=== PATIENT | male | born 1935 | race Caucasian/White ===

== ENCOUNTER 2016-10-06 01:09 | Inpatient (IN) | payer MEDICARE, MEDICAID ==
[~2016-10-06] VITALS: Ht 177.8 cm; Wt 84.8 kg
[~2016-10-06 01:09] MED LIST: ALBU8.5H8 INH; FERR325T22 PO; FLUT1DIS28 INH; Furosemide PO; LEVO500T2 PO; METH4TAB21 PO; PANT40TA2 PO; TIOT18CA4 IH
[2016-10-06] MEDS ORDERED: FURO-152 PO (01:34)
[2016-10-06] MEDS ORDERED: ONDANSETRON 4 MG/2 ML VIAL IV ONE (03:15)
[2016-10-06] MEDS ORDERED: MORPHINE SULFATE 2 MG/1 ML DISP.SYRIN IV ONE (03:15)
[2016-10-06] MEDS ORDERED: MORPHINE SULFATE 4 MG/1 ML DISP.SYRIN ONE (03:33)
[2016-10-06] MEDS ORDERED: ONDANSETRON 4 MG/2 ML VIAL ONE (03:33)
[2016-10-06 03:42] LABS: BASOPHILS % (AUTO) 0.1 % (0.0-2.0); EOSINOPHILS # (AUTO) 0.1 K/uL (0.0-0.7); EOSINOPHILS % (AUTO) 0.6 % (0.0-7.0); HEMATOCRIT 28.2 % (40-50); HEMOGLOBIN 8.7 G/DL (14.0-18.0); LYMPHOCYTES # (AUTO) 0.5 K/UL (0.8-4.8); LYMPHOCYTES % (AUTO) 3.9 % (20.5-51.5); MEAN CORPUSCULAR HEMOGLOBIN 23.2 UUG (27.0-31.0); MEAN CORPUSCULAR HGB CONC 31 g/dL (32.0-37.0); MEAN CORPUSCULAR VOLUME 75.4 FL (82.0-92.0); MONOCYTES # (AUTO) 0.8 K/UL (0.1-1.30); MONOCYTES % (AUTO) 6.2 % (0.0-11.0); NEUTROPHILS # (AUTO) 11.2 K/UL (1.8-8.9); NEUTROPHILS % (AUTO) 89.2 % (38.5-71.5); PLATELET COUNT (AUTO) 229 K/UL (150-450); RED BLOOD CELL COUNT(AUTO) 3.74 MIL/UL (4.7-6.1); WHITE BLOOD COUNT (AUTO) 12.6 K/UL (4.0-11.2)
[2016-10-06 04:11] LABS: ALANINE AMINOTRANSFERASE 12 U/L (16-63); ALKALINE PHOSPHATASE 85 U/L (50-136); ASPARTATE AMINOTRANSFERASE 16 U/L (15-37); BILIRUBIN,DIRECT 0.2 mg/dL (0.0-0.2); BILIRUBIN,TOTAL 0.8 mg/dL (0.2-1.0); CARBON DIOXIDE 28 mmol/L (21-32); CHLORIDE 93 mmol/L (98-107); GLUCOSE 106 mg/dL (74-106); POTASSIUM 5.2 mmol/L (3.5-5.1); TOTAL PROTEIN, SERUM 8.1 g/dL (6.4-8.2); UREA NITROGEN, BLOOD 29 mg/dL (7-18)
[2016-10-06 04:11] LABS: *BILIRUBIN,URIN NEGATIVE (NEGATIVE); *BLOOD, URINE 3+ (NEGATIVE); *CLARITY,URINE CLEAR (CLEAR); *COLOR,URINE YELLOW (YELLOW); *KETONES,URINE NEGATIVE (NEGATIVE); *PROTEIN,URINE NEGATIVE (NEGATIVE); *UROBILINOGEN,URINE 0.2 E.U./dl (NORMAL); LEUKOCYTE ESTERASE ,URINE NEGATIVE (NEGATIVE); NITRITE, URINE NEGATIVE (NEGATIVE); PH,URINE 5.5 (5.0-8.0); UGLUCOSE NEGATIVE (NEGATIVE)
[2016-10-06 04:30] LABS: BACTERIA,URINE NONE SEEN /HPF (NONE SEEN); RBC,URINE 20-50 /HPF (0-3); SQUAMOUS EPITHELIAL CELL,UR NONE SEEN /HPF (NONE SEEN); WBC,URINE 0-3 /HPF (0-3)
--- NOTE | 2016-10-06 05:05 | NUR ---
Call placed to [facility], Dr. Dunn will be paged.
[2016-10-06] MEDS ORDERED: VANCOMYCIN IV 1,000 MG in IV DEXTROSE 5% 250 ML IV ONE (05:30)
[2016-10-06] MEDS ORDERED: PIPERACILLIN SODIUM/TAZOBACTAM 3.375 G in IV DEXTROSE 5% 50 ML IV ONE (05:30)
[2016-10-06] MEDS ORDERED: PIPERACILLIN/TAZOBACTAM/D5W 50 ML IV ONE (05:48)
[2016-10-06] MEDS ORDERED: VANCOMYCIN IV 200 ML ONE (05:48)
[2016-10-06] MEDS ORDERED: ONDANSETRON 4 MG/2 ML VIAL IV PRN (06:00)
[2016-10-06] MEDS ORDERED: ALBUTEROL SULFATE 2.5 MG/3 ML NEBU NEB PRN (06:00)
[2016-10-06] MEDS ORDERED: ACETAMINOPHEN 325 MG TABLET PO PRN (06:00)
[2016-10-06] MEDS ORDERED: MAGNESIUM HYDROXIDE 30 ML LIQUID UDC PO PRN (06:00)
[2016-10-06 06:49] VITALS: BP 90/52
--- NOTE | 2016-10-06 08:00 | NUR ---
PT confused and forgetfull. Pt alert and oriented x [address] Noted ESPINOZA lower extremity redness with scaly skin. Bruising noted on right lower leg. Upper extremities bruising noted. Head scab noted. Redness on buttocks noted. Pictures taken. Pt is in no acute distress. Call light is within reach.
[2016-10-06 08:07] VITALS: BP 110/58
[2016-10-06] MEDS: IV NS 1000 ML 1,000 ML IV PRN (08:58)
[2016-10-06] MEDS: methylPREDNISolone SOD SUCC 125 MG/2 ML VIAL IV SCH ×3 (09:46→17:25)
[2016-10-06] MEDS: PANTOPRAZOLE SODIUM 40 MG TABLET.DR PO SCH (09:46)
[2016-10-06 10:46] LABS: *BILIRUBIN,URIN NEGATIVE (NEGATIVE); *BLOOD, URINE 3+ (NEGATIVE); *CLARITY,URINE SLIGHTLY CLOUDY (CLEAR); *COLOR,URINE LIGHT YELLOW (YELLOW); *KETONES,URINE NEGATIVE (NEGATIVE); *PROTEIN,URINE 2+ (NEGATIVE); *UROBILINOGEN,URINE 0.2 E.U./dl (NORMAL); LEUKOCYTE ESTERASE ,URINE NEGATIVE (NEGATIVE); NITRITE, URINE NEGATIVE (NEGATIVE); PH,URINE 5.5 (5.0-8.0); UGLUCOSE NEGATIVE (NEGATIVE)
[2016-10-06 10:56] LABS: *CREATININE,URINE 89.2 mg/dL (30-125); *URINE TOTAL PROTEIN RANDOM 50.1 mg/dL (<150/24HR); BACTERIA,URINE FEW /HPF (NONE SEEN); RBC,URINE 20-50 /HPF (0-3); SQUAMOUS EPITHELIAL CELL,UR FEW /HPF (NONE SEEN)
[2016-10-06 10:57] LABS: URIC ACID CRYSTALS,URINE MANY /HPF (NONE SEEN)
[2016-10-06] MEDS: HYDROCODONE/APAP 5-325MG TABLET PO PRN (11:49)
[2016-10-06] MEDS ORDERED: VANCOMYCIN IV 750 MG in IV DEXTROSE 5% 250 ML IV SCH (12:45)
--- NOTE | 2016-10-06 13:30 | NUR ---
Clinical Pharmacy Note: Vancomycin Dosing per Pharmacy Subjective: Vancomycin IV to start on this 81 yo male patient for cellulitis. patient had vanco 1gm IVPB x1 in ED at 0600 today Objective: BUN 29/Scr 2 WBC 12.9 Temperature 97.9 ht 5' 10'' wt 84 kg Assessment/Plan: Due to elevated srcr & advanced age, will dose by fall off level. Will draw a vancomycin random level tomorrow am with labs for further dosing. Will follow daily.
[2016-10-06] MEDS: AMMONIUM LACTATE 12% LOTION 225 GM BOTTLE TP SCH ×2 (13:53→16:14)
[2016-10-06] MEDS ORDERED: PIPERACILLIN/TAZOBACTAM/D5W 3.375 G in PREMIXED 1 EACH IV SCH (14:00)
[2016-10-06 14:08] VITALS: BP 113/51
[2016-10-06] MEDS: PIPERACILLIN/TAZOBACTAM/D5W 2.25 G in PREMIXED 1 EACH IV SCH ×2 (15:30→21:41)
[2016-10-06 16:14] VITALS: BP 101/45
--- NOTE | 2016-10-06 18:30 | NUR ---
Pt is in no acute distress. Call light is within reach.
--- NOTE | 2016-10-06 19:15 | NUR ---
PATIENT ALERT AWAKE, NO SOB NO CHEST PAIN NOTED, NO COMPLAIN OF PAIN AT THIS TIME, BILATERAL LEG CELLULITIS PRESENT KEPT ELEVATED WITH PILLOW. CONT TO MONITOR.
--- NOTE | 2016-10-06 20:30 | NUR ---
TRIED TO PUT ON THE AIR MATTRESS, BUT PATIENT REFUSED, STATED, I'M SHERLEY LIKE THIS POSITION, I DONT WANT TO MOVED. EXPLAINED THE RISK AND BENEFIT, BUT REFUSED.
--- NOTE | 2016-10-06 20:35 | NUR ---
OFFERED TO PATIENT TO APPLY DVT PUMP, BUT REFUSED, SAID "I HAVE WOUND THERE, I DONT WANT IT" EXPLAINED THAT DRESSING WILL BE APPLIED TO THE WOUND, BUT REFUSED.
[2016-10-06 20:43] VITALS: BP 97/51
[2016-10-07] VITALS (15 sets, daily range): BP systolic 105–167; BP diastolic 39–81
[2016-10-07] MEDS: methylPREDNISolone SOD SUCC 125 MG/2 ML VIAL IV SCH ×5 (00:16→23:36)
[2016-10-07] MEDS: PIPERACILLIN/TAZOBACTAM/D5W 2.25 G in PREMIXED 1 EACH IV SCH ×4 (01:46→20:03)
[2016-10-07] MEDS: PANTOPRAZOLE SODIUM 40 MG TABLET.DR PO SCH (06:17)
[2016-10-07] MEDS: IV NS 1000 ML 1,000 ML IV PRN (06:17)
--- NOTE | 2016-10-07 07:04 | NUR ---
PATIENT ALERT BUT FORGETFULL, NO SOB NO CHEST PAIN, KEPT CLEAN AND DRY. NO S/S OF DISTRESS.
[2016-10-07 07:08] LABS: IRON, SERUM 20 ug/dL (50-175)
[2016-10-07 07:21] LABS: VANCOMYCIN,RANDOM 6.3 ug/mL (18.0-26.0)
[2016-10-07 07:22] LABS: BASOPHILS % (AUTO) 0.1 % (0.0-2.0); HEMATOCRIT 25.5 % (40-50); LYMPHOCYTES # (AUTO) 0.2 K/UL (0.8-4.8); LYMPHOCYTES % (AUTO) 5.2 % (20.5-51.5); MEAN CORPUSCULAR HEMOGLOBIN 23.4 UUG (27.0-31.0); MEAN CORPUSCULAR HGB CONC 31 g/dL (32.0-37.0); MEAN CORPUSCULAR VOLUME 76.4 FL (82.0-92.0); MONOCYTES # (AUTO) 0.1 K/UL (0.1-1.30); MONOCYTES % (AUTO) 1.8 % (0.0-11.0); NEUTROPHILS # (AUTO) 3.8 K/UL (1.8-8.9); NEUTROPHILS % (AUTO) 91.9 % (38.5-71.5)
[2016-10-07 07:30] LABS: RED BLOOD CELL COUNT(AUTO) 3.33 MIL/UL (4.7-6.1); WHITE BLOOD COUNT (AUTO) 4.1 K/UL (4.0-11.2)
[2016-10-07] MEDS ORDERED: CEFTRIAXONE 1 G in IV DEXTROSE 5% 50 ML IV SCH (07:30)
[2016-10-07 07:31] LABS: PLATELET COUNT (AUTO) 162 K/UL (150-450)
[2016-10-07 07:32] LABS: HEMOGLOBIN 7.8 G/DL (14.0-18.0)
[2016-10-07 07:41] LABS: CREATINE KINASE, TOTAL 115 U/L (39-308)
--- NOTE | 2016-10-07 08:00 | NUR ---
Pt is in no acute distress. pt has low hg level awaiting for further orders. Call light is within reach. Applied lotion on legs. Pt's legs still has less scaly skin but still swollen and reddened.
[2016-10-07] MEDS: AMMONIUM LACTATE 12% LOTION 225 GM BOTTLE TP SCH ×2 (08:18→16:34)
[2016-10-07 08:20] LABS: ALANINE AMINOTRANSFERASE 14 U/L (16-63); ALKALINE PHOSPHATASE 60 U/L (50-136); ASPARTATE AMINOTRANSFERASE 16 U/L (15-37); BILIRUBIN,TOTAL 0.6 mg/dL (0.2-1.0); CARBON DIOXIDE 27 mmol/L (21-32); CHLORIDE 97 mmol/L (98-107); CREATININE 1.9 mg/dL (0.6-1.3); FERRITIN 31 ng/mL (26-388); GLUCOSE 142 mg/dL (74-106); MAGNESIUM 2.4 mg/dL (1.8-2.4); PHOSPHOROUS 4.2 mg/dL (2.5-4.9); POTASSIUM 4.5 mmol/L (3.5-5.1); UREA NITROGEN, BLOOD 28 mg/dL (7-18)
[2016-10-07] MEDS ORDERED: VANCOMYCIN IV 1,250 MG in IV DEXTROSE 5% 500 ML IV ONE (09:30)
[2016-10-07] MEDS ORDERED: VANCOMYCIN IV 1 G in PREMIXED 0 EACH IV ONE (10:00)
[2016-10-07] MEDS: CYANOCOBALAMIN 1000 MCG/ML VIAL IM SCH (11:59)
[2016-10-07] MEDS ORDERED: MAGNESIUM HYDROXIDE 30 ML LIQUID UDC PO ONE (16:00)
--- NOTE | 2016-10-07 17:02 | NUR ---
Clinical Pharmacy Note: Vancomycin Dosing per Pharmacy Subjective: Vancomycin IV to continue on this 81 yo male patient for cellulitis. Objective: BUN 28/Scr 1.9 WBC 4.1 Temperature 98 Vanco random level : 6.3 (with am labs- post 1gm dose in Ed on 10/06 at 0600) ht 5' 10'' wt 84 kg Assessment/Plan: Due to elevated srcr & advanced age, will continue to dose by fall off level. Since vancomycin random level is 6.3, gave vancomycin 1250mg IVPB x1 dose this am at 10am. Will draw a vancomycin random level tomorrow am with labs for further dosing. Will follow daily.
--- NOTE | 2016-10-07 18:30 | NUR ---
Awaiting results from prune juice and MOM given earlier for his constipation still no result. Blood transfusion done no reaction noted and no sob noted. IV site on left arm intact. Call light is within reach.
--- NOTE | 2016-10-07 23:15 | NUR ---
PT'S BP ELEVATED 157/71, HR 99. PT IS IN NO ACUTE DISTRESS, NO SOB. DR. FRANKLIN AWARE, NO NEW ORDERS AT THIS TIME. PER DR. FRANKLIN, CONTINUE TO MONITOR AND WILL EVALUATE TOGETHER WITH LABS IN THE MORNING.
--- NOTE | 2016-10-07 23:30 | NUR ---
PT'S BP 167/66, HR 94, ALERT, IN NO ACUTE DISTRESS, NO SOB, NO C/O OF CHEST PAIN. PAGED DR. FRANKLIN FOR PARAMETERS. WILL CONTINUE TO MONITOR.
[2016-10-07] MEDS: HYDROCODONE/APAP 5-325MG TABLET PO PRN (23:35)
--- NOTE | 2016-10-08 | NUR ---
NO RESPONSE FROM DR. FRANKLIN. PT'S BP DOWN TO 155/81. PT IS ALERT, IN NO ACUTE DISTRESS. WILL CONTINUE TO MONITOR
[2016-10-08 00:45] VITALS: BP 148/78
[2016-10-08 01:45] VITALS: BP 139/74
--- NOTE | 2016-10-08 02:08 | NUR ---
1 UNIT PRBC ADMINISTERED ORDERED. PT TOLERATED PROCEDURE WELL, NO ADVERSE REACTION NOTED, IN NO ACUTE DISTRESS, NO SOB, NO C/O OF CHEST PAIN. WILL CONTINUE TO MONITOR.
[2016-10-08] MEDS: PIPERACILLIN/TAZOBACTAM/D5W 2.25 G in PREMIXED 1 EACH IV SCH ×4 (02:36→21:10)
--- NOTE | 2016-10-08 06:00 | NUR ---
PT AWAKE MOST OF THE SHIFT, C/O OF BEING "POKED" AT MULTIPLE TIMES. PT IS IN NO ACUTE DISTRESS, NO SOB, NO C/O OF CHEST PAIN. BED ALARM ON, CALL LIGHT WITHIN REACH. WILL CONTINUE TO MONITOR.
[2016-10-08] MEDS: methylPREDNISolone SOD SUCC 125 MG/2 ML VIAL IV SCH (06:04)
[2016-10-08] MEDS: PANTOPRAZOLE SODIUM 40 MG TABLET.DR PO SCH (06:04)
[2016-10-08 06:55] LABS: BASOPHILS % (AUTO) 0.1 % (0.0-2.0); EOSINOPHILS # (AUTO) 0.1 K/uL (0.0-0.7); LYMPHOCYTES # (AUTO) 0.3 K/UL (0.8-4.8); LYMPHOCYTES % (AUTO) 3.2 % (20.5-51.5); MEAN CORPUSCULAR HEMOGLOBIN 25.6 UUG (27.0-31.0); MEAN CORPUSCULAR HGB CONC 32 g/dL (32.0-37.0); MEAN CORPUSCULAR VOLUME 80.1 FL (82.0-92.0); MONOCYTES # (AUTO) 0.5 K/UL (0.1-1.30); MONOCYTES % (AUTO) 5.1 % (0.0-11.0); NEUTROPHILS # (AUTO) 9.1 K/UL (1.8-8.9); NEUTROPHILS % (AUTO) 90.6 % (38.5-71.5); PLATELET COUNT (AUTO) 151 K/UL (150-450)
--- NOTE | 2016-10-08 07:00 | NUR ---
PT INSISTED TO GO TO BATHROOM WITH 2 PERSON ASSIST. EXPERIENCED SOB ON EXERTION. PLACED PATIENT BACK TO CHAIR. ASSESSED O2 AT 96% 2L NC. INSTRUCTED PATIENT TO DEEP BREATHE AND RELAX. PATIENT VERBALIZED UNDERSTANDING. CALL LIGHT WITHIN REACH. WILL CONTINUE TO MONITOR.
[2016-10-08 07:03] LABS: HEMATOCRIT 33.6 % (40-50); HEMOGLOBIN 10.8 G/DL (14.0-18.0)
[2016-10-08 07:09] LABS: CARBON DIOXIDE 30 mmol/L (21-32); CHLORIDE 100 mmol/L (98-107); CREATININE 1.9 mg/dL (0.6-1.3); GLUCOSE 136 mg/dL (74-106); MAGNESIUM 2.9 mg/dL (1.8-2.4); POTASSIUM 4.9 mmol/L (3.5-5.1); UREA NITROGEN, BLOOD 36 mg/dL (7-18)
[2016-10-08 08:32] LABS: ALKALINE PHOSPHATASE 57 U/L (50-136); ASPARTATE AMINOTRANSFERASE 21 U/L (15-37); PHOSPHOROUS 3.6 mg/dL (2.5-4.9); TOTAL PROTEIN, SERUM 7.4 g/dL (6.4-8.2)
[2016-10-08 09:11] LABS: ALANINE AMINOTRANSFERASE 16 U/L (16-63); BILIRUBIN,TOTAL 1.5 mg/dL (0.2-1.0)
[2016-10-08] MEDS: CYANOCOBALAMIN 1000 MCG/ML VIAL IM SCH (09:26)
[2016-10-08] MEDS: Z GUARD REMEDY PASTE 57 GM TUBE TOP PRN (09:26)
[2016-10-08] MEDS: AMMONIUM LACTATE 12% LOTION 225 GM BOTTLE TP SCH ×2 (09:27→17:00)
[2016-10-08 11:12] LABS: VANCOMYCIN,RANDOM 14.4 ug/mL (18.0-26.0)
[2016-10-08 11:59] VITALS: BP 131/61
[2016-10-08] MEDS ORDERED: VANCOMYCIN IV 1,250 MG in IV DEXTROSE 5% 500 ML IV ONE (12:00)
[2016-10-08 12:10] LABS: A/G RATIO 0.9 (0.7-1.7); ALBUMIN 2.9 g/dL (2.9-4.4); ALPHA-1-GLOBULIN 0.3 g/dL (0.0-0.4); ALPHA-2-GLOBULIN 0.7 g/dL (0.4-1.0); BETA GLOBULIN 0.9 g/dL (0.7-1.3); GAMMA GLOBULIN 1.4 g/dL (0.4-1.8); GLOBULIN, TOTAL 3.3 g/dL (2.2-3.9); M-SPIKE Not Observed g/dL (Not Observed)
--- NOTE | 2016-10-08 12:59 | NUR ---
WOUND CARE CONSULT: PT PRESENTS WITH REDNESS TO LOWER LEGS WITH CRUSTING AND SOME PURULENT DRAINAGE. RECOMMENDATIONS MADE AND DISCUSSED WITH NURSING STAFF. RECOMMEND DPM CONSULT. PT REFUSED SKIN ASSESSMENT OF BACK AND BUTTOCKS. ALL SKIN PROTECTION MEASURES IN PLACE. WILL SEE PRN. MCGUIRE IN AGREEMENT WITH PLAN OF CARE. Addendum: 10/08/16 at 1303 by XOCHITL TREJO RN Amended: Links added.
[2016-10-08] MEDS: SILVER SULFADIAZINE 1% CREAM 50 GM TP SCH (13:00)
[2016-10-08] MEDS ORDERED: methylPREDNISolone SOD SUCC 125 MG/2 ML VIAL IV SCH (14:00)
[2016-10-08] MEDS: methylPREDNISolone SOD SUCC 40 MG/ML VIAL IV SCH ×2 (14:05→21:10)
[2016-10-08 15:18] VITALS: BP 137/68
--- NOTE | 2016-10-08 15:50 | NUR ---
Clinical Pharmacy Note: Vancomycin Dosing per Pharmacy Subjective: Vancomycin IV to continue on this 81 yo male patient for cellulitis. Objective: BUN 36/Scr 1.9 WBC 10.0 Temperature 98 Vanco random level : 14.4 (with am labs) ht 5' 10'' wt 84 kg Assessment/Plan: Due to elevated srcr & advanced age, will continue to dose by fall off level. Gave one dose 1250mg vancomycin today at 1200 based on random today. Will draw a vancomycin random level tomorrow am with labs for further dosing. Will follow daily.
[2016-10-08 20:00] VITALS: BP 151/77
[2016-10-08] MEDS: LACTOBACILLUS RHAMNOSUS GG 1 EACH CAPSULE PO SCH (21:10)
[2016-10-09] MEDS: PIPERACILLIN/TAZOBACTAM/D5W 2.25 G in PREMIXED 1 EACH IV SCH ×4 (02:09→19:46)
[2016-10-09 04:56] VITALS: BP 139/61
--- NOTE | 2016-10-09 05:15 | NUR ---
PT SLEPT ON THE CHAIR THROUGHOUT SHIFT, REFUSED TO LAY IN BED. PT STATED HE HAS BEEN SLEEPING ON THE CHAIR AT HOME FOR A LONG TIME. PT STATED "I DON'T KNOW WHY I GET NERVOUS WHEN I'M IN BED". PATIENT REFUSED TO HAVE LOWER EXTREMITIES ELEVATED. PT IS IN NO ACUTE DISTRESS, NO SOB, NO C/O OF CHEST PAIN. CALL LIGHT WITHIN REACH, WILL CONTINUE TO MONITOR.
[2016-10-09] MEDS: PANTOPRAZOLE SODIUM 40 MG TABLET.DR PO SCH (06:01)
[2016-10-09] MEDS: methylPREDNISolone SOD SUCC 40 MG/ML VIAL IV SCH ×3 (06:01→21:09)
[2016-10-09 07:14] LABS: BASOPHILS % (AUTO) 0.1 % (0.0-2.0); EOSINOPHILS # (AUTO) 0.1 K/uL (0.0-0.7); EOSINOPHILS % (AUTO) 0.9 % (0.0-7.0); HEMATOCRIT 34.7 % (40-50); HEMOGLOBIN 11.1 G/DL (14.0-18.0); LYMPHOCYTES # (AUTO) 0.3 K/UL (0.8-4.8); LYMPHOCYTES % (AUTO) 4.5 % (20.5-51.5); MEAN CORPUSCULAR HEMOGLOBIN 25.8 UUG (27.0-31.0); MEAN CORPUSCULAR HGB CONC 32 g/dL (32.0-37.0); MEAN CORPUSCULAR VOLUME 80.5 FL (82.0-92.0); MONOCYTES # (AUTO) 0.5 K/UL (0.1-1.30); MONOCYTES % (AUTO) 6.2 % (0.0-11.0); NEUTROPHILS # (AUTO) 6.7 K/UL (1.8-8.9); NEUTROPHILS % (AUTO) 88.3 % (38.5-71.5); PLATELET COUNT (AUTO) 147 K/UL (150-450); RED BLOOD CELL COUNT(AUTO) 4.31 MIL/UL (4.7-6.1); WHITE BLOOD COUNT (AUTO) 7.6 K/UL (4.0-11.2)
[2016-10-09 07:36] LABS: ALANINE AMINOTRANSFERASE 20 U/L (16-63); ALKALINE PHOSPHATASE 54 U/L (50-136); ASPARTATE AMINOTRANSFERASE 16 U/L (15-37); BILIRUBIN,TOTAL 0.7 mg/dL (0.2-1.0); CARBON DIOXIDE 31 mmol/L (21-32); CHLORIDE 100 mmol/L (98-107); CREATININE 1.6 mg/dL (0.6-1.3); GLUCOSE 131 mg/dL (74-106); PHOSPHOROUS 3.2 mg/dL (2.5-4.9); POTASSIUM 4.7 mmol/L (3.5-5.1); TOTAL PROTEIN, SERUM 7.5 g/dL (6.4-8.2); UREA NITROGEN, BLOOD 34 mg/dL (7-18)
--- NOTE | 2016-10-09 08:00 | NUR ---
AWAKE COOPERATE WELL NO SOB OR RESPIRATORY DISTRESS NO PAIN EAT BREAKFAST MOD AMT CONTINUEO2 AT 2L /MIN SITTING IN CHAIR WITH CALL CHILDS IN REACH
[2016-10-09 08:06] LABS: MAGNESIUM 2.7 mg/dL (1.8-2.4); VANCOMYCIN,RANDOM 19.8 ug/mL (18.0-26.0)
[2016-10-09] MEDS: SILVER SULFADIAZINE 1% CREAM 50 GM TP SCH (08:52)
[2016-10-09] MEDS: Z GUARD REMEDY PASTE 57 GM TUBE TOP PRN (08:53)
[2016-10-09] MEDS: AMMONIUM LACTATE 12% LOTION 225 GM BOTTLE TP SCH ×2 (08:53→17:23)
[2016-10-09] MEDS: CYANOCOBALAMIN 1000 MCG/ML VIAL IM SCH (08:53)
[2016-10-09] MEDS: LACTOBACILLUS RHAMNOSUS GG 1 EACH CAPSULE PO SCH ×2 (09:11→21:09)
[2016-10-09 11:53] VITALS: BP 149/85
[2016-10-09] MEDS ORDERED: VANCOMYCIN IV 1,250 MG in IV DEXTROSE 5% 500 ML IV ONE (12:00)
--- NOTE | 2016-10-09 14:00 | NUR ---
REPORT OF BLOOD CULTURE WAS POSITIVE MRSA TO DR RIDLEY.NOEMI NO NEW ORDER PATIENT ALREADY ON VANCOMYCIN AND ZOSYN AND ON CONTACT ISOLATION
--- NOTE | 2016-10-09 15:30 | NUR ---
IV INFILTRATE LEAKING REFUSED TO RESTART A NEW ONE WILL TRY LATER
[2016-10-09 15:35] VITALS: BP 153/81
--- NOTE | 2016-10-09 15:45 | NUR ---
Clinical Pharmacy Note: Vancomycin Dosing per Pharmacy Subjective: Vancomycin IV to continue on this 81 yo male patient for cellulitis. Objective: BUN 34/Scr 1.6 WBC 7.6 Temperature 98.2 Vanco random level : 19.8 today at 0600 ht 5' 10'' wt 84 kg Blood culture:MRSA positive Assessment/Plan: Due to elevated srcr & advanced age, will continue to dose by fall off level. Gave one dose 1250mg vancomycin today at 1200 based on random today. Will draw a vancomycin random level tomorrow am with labs for further dosing. Will follow daily.
--- NOTE | 2016-10-09 18:00 | NUR ---
STABLE CONDITION NO RESPIRATORY DISTRESS OR SOB PAIN UNDER CONTROL SAFETY MEASURE PROVIDED CALL CHILDS IN REACH AND BED ALARM ON
[2016-10-09 20:00] VITALS: BP 147/83
[2016-10-10] MEDS: PIPERACILLIN/TAZOBACTAM/D5W 2.25 G in PREMIXED 1 EACH IV SCH ×2 (01:39→08:23)
--- NOTE | 2016-10-10 04:00 | NUR ---
PT STATED WAKING UP WITH THE IV SITE BLEEDING/ IV PULLED OUT ON LEFT HAND. ALSO NOTED NEW SKIN TEAR ON SAME HAND. TX DONE. APPLIED STERI STRIP. PICTURE TAKEN. PLACED ON CHART.
[2016-10-10 05:00] VITALS: BP 122/63
[2016-10-10] MEDS ORDERED: methylPREDNISolone SOD SUCC 40 MG/ML VIAL ONE (06:05)
[2016-10-10] MEDS: PANTOPRAZOLE SODIUM 40 MG TABLET.DR PO SCH (06:09)
[2016-10-10] MEDS: methylPREDNISolone SOD SUCC 40 MG/ML VIAL IV SCH ×2 (06:09→14:26)
--- NOTE | 2016-10-10 07:00 | NUR ---
NEW IV SITE REINSERT ON LEFT HAND #22 X 1 ATTEMPT USING ASEPTIC TECHNIQUE. PATENT AND INTACT. PROCEDURE TOLERATED WELL. CONTINUE ON CONTACT ISOLATION FOR MRSA BLOOD. SAFETY MAINTAINED THROUGHOUT SHIFT.
--- NOTE | 2016-10-10 07:10 | NUR ---
PT AWAKE, SITTING IN CHAIR, IN NO ACUTE DISTRESS. AGITATED, YELLING AT PEOPLE ON TV. IV INTACT AND PATENT. ABLE TO MAKE NEEDS KNOWN, NONE AT THIS TIME. CALL LIGHT IN REACH, CONTACT PRECAUTIONS MAINTAINED. ALL SAFETY AND COMFORT MEASURES ATTENDED TOO
[2016-10-10] MEDS: CYANOCOBALAMIN 1000 MCG/ML VIAL IM SCH (08:23)
[2016-10-10] MEDS: LACTOBACILLUS RHAMNOSUS GG 1 EACH CAPSULE PO SCH (08:23)
[2016-10-10] MEDS: AMMONIUM LACTATE 12% LOTION 225 GM BOTTLE TP SCH (08:25)
[2016-10-10] MEDS: SILVER SULFADIAZINE 1% CREAM 50 GM TP SCH (08:25)
[2016-10-10 10:30] LABS: BASOPHILS % (AUTO) 0.1 % (0.0-2.0); EOSINOPHILS # (AUTO) 0.1 K/uL (0.0-0.7); EOSINOPHILS % (AUTO) 0.7 % (0.0-7.0); HEMATOCRIT 34.5 % (40-50); HEMOGLOBIN 10.9 G/DL (14.0-18.0); LYMPHOCYTES # (AUTO) 0.4 K/UL (0.8-4.8); LYMPHOCYTES % (AUTO) 3.6 % (20.5-51.5); MEAN CORPUSCULAR HEMOGLOBIN 25.5 UUG (27.0-31.0); MEAN CORPUSCULAR HGB CONC 32 g/dL (32.0-37.0); MEAN CORPUSCULAR VOLUME 80.8 FL (82.0-92.0); MONOCYTES # (AUTO) 0.8 K/UL (0.1-1.30); MONOCYTES % (AUTO) 8.1 % (0.0-11.0); NEUTROPHILS # (AUTO) 8.9 K/UL (1.8-8.9); NEUTROPHILS % (AUTO) 87.5 % (38.5-71.5); PLATELET COUNT (AUTO) 137 K/UL (150-450); RED BLOOD CELL COUNT(AUTO) 4.27 MIL/UL (4.7-6.1)
[2016-10-10 10:38] LABS: WHITE BLOOD COUNT (AUTO) 10.2 K/UL (4.0-11.2)
[2016-10-10 10:42] LABS: ALANINE AMINOTRANSFERASE 15 U/L (16-63); ALKALINE PHOSPHATASE 48 U/L (50-136); ASPARTATE AMINOTRANSFERASE 19 U/L (15-37); BILIRUBIN,TOTAL 0.7 mg/dL (0.2-1.0); CARBON DIOXIDE 30 mmol/L (21-32); CHLORIDE 99 mmol/L (98-107); CREATININE 1.4 mg/dL (0.6-1.3); GLUCOSE 148 mg/dL (74-106); MAGNESIUM 2.6 mg/dL (1.8-2.4); PHOSPHOROUS 2.7 mg/dL (2.5-4.9); POTASSIUM 4.6 mmol/L (3.5-5.1); TOTAL PROTEIN, SERUM 6.9 g/dL (6.4-8.2); UREA NITROGEN, BLOOD 34 mg/dL (7-18); VANCOMYCIN,RANDOM 17.2 ug/mL (18.0-26.0)
[2016-10-10 11:33] VITALS: BP 121/58
[2016-10-10] MEDS ORDERED: VANCOMYCIN IV 1,250 MG in IV DEXTROSE 5% 500 ML IV ONE (12:00)
[2016-10-10] MEDS ORDERED: PIPERACILLIN/TAZOBACTAM/D5W 3.375 G in PREMIXED 1 EACH IV SCH (14:00)
--- NOTE | 2016-10-10 14:31 | NUR ---
The patient will be discharged today to [facility] per Dr. Calles and the request of his main caregiver, Cristobal Velazquez [ ]. Cristobal stated that the patient had been refusing to ambulate at home and she is getting too weak to lift him around. She would like for him to be a little stronger before going back to her home. She promised the patient that she will not put him in a SNF and she is requesting for home health to follow-up once ready to go back home. JONY Muse from [facility], confirmed that they will admit the patient today. His RN, Layla, is aware of his discharge plan and will call the unit for the report.
--- NOTE | 2016-10-10 14:49 | NUR ---
Clinical Pharmacy Note: Vancomycin Dosing per Pharmacy Subjective: Vancomycin IV to continue on this 81 yo male patient for cellulitis. Objective: BUN 34/Scr 1.4 WBC 10.2 Temperature 97.6 Vanco random level : 17.2 today at 0600 ht 5' 10'' wt 84 kg Blood culture:MRSA positive Assessment/Plan: Due to elevated srcr & advanced age, will continue to dose by fall off level. Gave one dose of 1250mg today at 1200. Will draw a vancomycin random level tomorrow am with labs for further dosing. Will follow daily.
[2016-10-10 15:15] VITALS: BP_SYST 121; BP_SYST 123; BP_DIAS 58; BP_DIAS 60
[2016-10-10] MEDS ORDERED: MENT71OI TOP (15:21)
[2016-10-10] MEDS ORDERED: ZINC220C8 PO (15:21)
[2016-10-10] MEDS ORDERED: ALBU2.5V7 NEB (15:21)
[2016-10-10] MEDS ORDERED: LACT1CAP57 PO (15:21)
[2016-10-10] MEDS ORDERED: Silver Sulfadiazine 1% Cream TP (15:21)
[2016-10-10] MEDS ORDERED: CYAN10006 IM (15:21)
[2016-10-10] MEDS ORDERED: RXVAN XX (15:21)
[2016-10-10] MEDS ORDERED: PRED20TA PO (15:21)
[2016-10-10] MEDS ORDERED: PANT40TA2 PO ×2 (15:21→15:25)
[2016-10-10] MEDS ORDERED: MULT1TAB73 PO (15:21)
[2016-10-10] MEDS ORDERED: ACET325T53 PO (15:21)
[2016-10-10] MEDS ORDERED: ASCO500C16 PO (15:21)
[2016-10-10] MEDS ORDERED: AMMO225L7 TP (15:21)
[2016-10-10] MEDS ORDERED: MAG30ORA PO (15:21)
[2016-10-10] MEDS ORDERED: FURO-152 PO (15:21)
[2016-10-10] MEDS ORDERED: FERR325T28 PO (15:21)
[2016-10-10] MEDS ORDERED: HYDR-3326 PO (15:21)
--- NOTE | 2016-10-10 17:00 | NUR ---
DISCHARGE PROTOCOL FOLLOWED, DISCHARGE PICTURES TAKEN HOWEVER UPON LAST TWO PICTURES, OF THE SACRUM AND THE LEFT ARM, PT BECAME VERY AGITATED AND REFUSED AND FURTHER PICTURES. PT AGITATED DUE TO THE FACT BEING TRANSFERRED TO ARU AND NOT HOME. STATED "I AM NOT STAYING ANY MORE THAN 2 DAYS, I GOT HELP AT HOME" ALL BELONGINGS ACCOUNTED FOR AND RETURNED TO PT, TRIED TO GET A HOLD OF PT DAUGHTER HOWEVER LINE WAS BUSY. PT ID BAND REMOVED AND ALL FORMS SIGNED. PT TAKEN DOWN TO ARU IN A WHEELCHAIR WITH IV AND DC INTACT. REPORT GIVEN TO ARU NURSE
== END 2016-10-10 17:00 | DRG 871 ==
LOC: ER 01:11 → TELE 06:07 → MED 19:32
PROVIDERS: ADMIT Internal Medicine; ATTEND Internal Medicine
PROC: 30233N1 Transfusion of Nonautologous Red Blood Cells into Peripheral Vein, Percutaneous Approach (ICD-10-PCS; principal; 2016-10-07)
DX: A41.9 Sepsis, unspecified organism (principal); N17.0 Acute kidney failure with tubular necrosis; E43 Unspecified severe protein-calorie malnutrition; I50.33 Acute on chronic diastolic (congestive) heart failure; R53.2 Functional quadriplegia; D68.59 Other primary thrombophilia; L03.116 Cellulitis of left lower limb; L03.115 Cellulitis of right lower limb; J44.1 Chronic obstructive pulmonary disease with (acute) exacerbation; E87.1 Hypo-osmolality and hyponatremia; E87.2 Acidosis; K92.2 Gastrointestinal hemorrhage, unspecified; R65.20 Severe sepsis without septic shock; N40.1 Benign prostatic hyperplasia with lower urinary tract symptoms; R33.8 Other retention of urine; D50.9 Iron deficiency anemia, unspecified; Z87.891 Personal history of nicotine dependence; Z68.26 Body mass index [BMI] 26.0-26.9, adult; Z74.09 Other reduced mobility; B95.5 Unspecified streptococcus as the cause of diseases classified elsewhere; Z79.899 Other long term (current) drug therapy; J61 Pneumoconiosis due to asbestos and other mineral fibers; E66.9 Obesity, unspecified; E53.8 Deficiency of other specified B group vitamins; D50.0 Iron deficiency anemia secondary to blood loss (chronic); I70.0 Atherosclerosis of aorta; N18.9 Chronic kidney disease, unspecified; K21.9 Gastro-esophageal reflux disease without esophagitis; I87.2 Venous insufficiency (chronic) (peripheral)
CPT/HCPCS: 36415; 51702; 70030-TC; 71010; 76770; 83550; 83605; 83735; 83970; 84100; 84155; 84156; 84165; 84300; 85025; 85730; 86850; 86900; 86901; 86920; 87040; 87070; 87077; 87086; 93005; 93307; 94640; 97116; 97161; 97530; A4663; J0696; J2270; J2405; J2543; J2920; J2930; J3370; J3420; J7030; J7040; J7050; J7060; P9016-BL; P9021

== ENCOUNTER 2016-10-10 14:50 | Inpatient (IN) | payer MEDICARE, MEDICAID ==
[~2016-10-10] VITALS: Ht 180.3 cm; Wt 84.8 kg
[~2016-10-10 14:50] MED LIST changes: -ALBU8.5H8 INH; -FERR325T22 PO; -FLUT1DIS28 INH; +FURO-152 PO; -Furosemide PO; -LEVO500T2 PO; -METH4TAB21 PO; -PANT40TA2 PO; -TIOT18CA4 IH
[2016-10-10] MEDS ORDERED: MENT71OI TOP (15:21)
[2016-10-10] MEDS ORDERED: FERR325T28 PO (15:21)
[2016-10-10] MEDS ORDERED: ACET325T53 PO (15:21)
[2016-10-10] MEDS ORDERED: PRED20TA PO (15:21)
[2016-10-10] MEDS ORDERED: FURO-152 PO (15:21)
[2016-10-10] MEDS ORDERED: HYDR-3326 PO (15:21)
[2016-10-10] MEDS ORDERED: AMMO225L7 TP (15:21)
[2016-10-10] MEDS ORDERED: LACT1CAP57 PO (15:21)
[2016-10-10] MEDS ORDERED: RXVAN XX (15:21)
[2016-10-10] MEDS ORDERED: MAG30ORA PO (15:21)
[2016-10-10] MEDS ORDERED: CYAN10006 IM (15:21)
[2016-10-10] MEDS ORDERED: ZINC220C8 PO (15:21)
[2016-10-10] MEDS ORDERED: ALBU2.5V7 NEB (15:21)
[2016-10-10] MEDS ORDERED: Silver Sulfadiazine 1% Cream TP (15:21)
[2016-10-10] MEDS ORDERED: ASCO500C16 PO (15:21)
[2016-10-10] MEDS ORDERED: MULT1TAB73 PO (15:21)
[2016-10-10] MEDS ORDERED: PANT40TA2 PO ×2 (15:21→15:25)
[2016-10-10 21:00] VITALS: BP 138/68
[2016-10-10] MEDS ORDERED: ALBUTEROL SULFATE 2.5 MG/3 ML NEBU NEB PRN (22:30)
[2016-10-10] MEDS ORDERED: MAG HYDROX/AL HYDROX/SIMETH 30 ML LIQUID UDC PO PRN (22:30)
[2016-10-10] MEDS ORDERED: TAMSULOSIN HCL 0.4 MG CAP.SR.24H PO ONE (22:30)
[2016-10-10] MEDS ORDERED: Z GUARD REMEDY PASTE 57 GM TUBE TOP PRN (22:30)
[2016-10-10] MEDS ORDERED: ACETAMINOPHEN 325 MG TABLET PO PRN (22:30)
[2016-10-10] MEDS ORDERED: TAMSULOSIN HCL 0.4 MG CAP.SR.24H ONE (23:11)
[2016-10-11 08:13] LABS: BASOPHILS % (AUTO) 0.1 % (0.0-2.0); EOSINOPHILS % (AUTO) 0.5 % (0.0-7.0); HEMATOCRIT 33.4 % (40-50); HEMOGLOBIN 10.3 G/DL (14.0-18.0); LYMPHOCYTES # (AUTO) 0.9 K/UL (0.8-4.8); LYMPHOCYTES % (AUTO) 11.3 % (20.5-51.5); MEAN CORPUSCULAR HEMOGLOBIN 24.7 UUG (27.0-31.0); MEAN CORPUSCULAR HGB CONC 31 g/dL (32.0-37.0); MEAN CORPUSCULAR VOLUME 80.3 FL (82.0-92.0); MONOCYTES # (AUTO) 0.5 K/UL (0.1-1.30); MONOCYTES % (AUTO) 6.9 % (0.0-11.0); NEUTROPHILS # (AUTO) 6.2 K/UL (1.8-8.9); NEUTROPHILS % (AUTO) 81.2 % (38.5-71.5); RED BLOOD CELL COUNT(AUTO) 4.16 MIL/UL (4.7-6.1)
[2016-10-11 08:15] LABS: PLATELET COUNT (AUTO) 101 K/UL (150-450); WHITE BLOOD COUNT (AUTO) 7.6 K/UL (4.0-11.2)
[2016-10-11 08:20] LABS: CARBON DIOXIDE 30 mmol/L (21-32); CHLORIDE 98 mmol/L (98-107); CHOLESTEROL 133 mg/dL (<200); CREATININE 1.5 mg/dL (0.6-1.3); GLUCOSE 157 mg/dL (74-106); HDL CHOLESTEROL 49 mg/dL (40-60); MAGNESIUM 2.5 mg/dL (1.8-2.4); POTASSIUM 3.7 mmol/L (3.5-5.1); TRIGLYCERIDES 105 MG/DL (30-150); UREA NITROGEN, BLOOD 33 mg/dL (7-18)
[2016-10-11] MEDS: PANTOPRAZOLE SODIUM 40 MG TABLET.DR PO SCH ×2 (11:27→17:16)
[2016-10-11] MEDS: FUROSEMIDE 20 MG TABLET PO SCH (11:27)
[2016-10-11] MEDS: MULTIVITAMINS,THERAPEUTIC TABLET PO SCH (11:27)
[2016-10-11] MEDS: LACTOBACILLUS RHAMNOSUS GG 1 EACH CAPSULE PO SCH ×2 (11:27→21:41)
[2016-10-11] MEDS: ZINC SULFATE 220 MG CAPSULE PO SCH (11:27)
[2016-10-11] MEDS: predniSONE 20 MG TABLET PO SCH ×2 (11:28→17:16)
[2016-10-11] MEDS: ASCORBIC ACID 500 MG TABLET PO SCH (11:28)
[2016-10-11] MEDS: AMMONIUM LACTATE 12% LOTION 225 GM BOTTLE TP SCH ×2 (11:28→17:16)
[2016-10-11] MEDS: FERROUS SULFATE 325 MG TABEC PO SCH (11:28)
[2016-10-11] MEDS: CYANOCOBALAMIN 1000 MCG/ML VIAL IM SCH (11:29)
--- NOTE | 2016-10-11 11:57 | NUR ---
Clinical Pharmacy Note: Vancomycin Dosing per Pharmacy Subjective: Vancomycin IV to continue on this 81 yo male patient for cellulitis. Objective: BUN 33/Scr 1.5 WBC 7.6 Temperature 98 Vanco random level :19.9 today at 07:40 ht 5' 10'' wt 84 kg Blood culture:MRSA positive Assessment/Plan: Due to elevated srcr & advanced age, will continue to dose by fall off level. Gave one dose of 1250mg today at 1200. Will draw a vancomycin random level tomorrow am with labs for further dosing. Will follow daily.
[2016-10-11] MEDS ORDERED: VANCOMYCIN IV 1,250 MG in IV DEXTROSE 5% 500 ML IV SCH (12:00)
[2016-10-11] MEDS ORDERED: VANCOMYCIN IV 1,250 MG in IV DEXTROSE 5% 500 ML IV ONE (12:01)
[2016-10-11 15:27] VITALS: BP 156/108
--- NOTE | 2016-10-11 19:25 | NUR ---
Received report from MALORIE Thomas. Pt currently sitting in a chair, pt expressed that he sits in the chair while sleeping and even at home. Pt has been requesting franklin crackers and water. Educated pt to be easy w/ water due to leg swollen, verbalized understanding. Pt is AOX2-3 ambulates w/ walker, calls for assistance per MULTIMEDIA AUTHORING SPECIALIST.
[2016-10-11 21:06] VITALS: BP 119/53
[2016-10-11 21:12] VITALS: BP 119/53
--- NOTE | 2016-10-11 21:30 | NUR ---
Night meds given, requested pain medicine (Morphine),no orders, given tylenol for pain 3-4/10 rt leg, non radiating, presence of wound.
--- NOTE | 2016-10-12 | NUR ---
Changed wound dressing at rt leg. Cleansed the site w/ NS, patted dry w/ sterile gauze, applied silvadene cream , covered w/ sterile gauze and secured w/ kerlix and calos bandage.
--- NOTE | 2016-10-12 02:00 | NUR ---
Pt sound asleep, continue monitor.
--- NOTE | 2016-10-12 04:00 | NUR ---
Remained asleep on his chair, breathing normally,continue monitor.
--- NOTE | 2016-10-12 06:00 | NUR ---
Pt is awake, requested for franklin crackers all the time, assessed pt's buttocks, skin integrity is intact. Z-guard at the bedside, used as needed. IV line tegaderm dressing changed. Removed Vancomycin tubings.
--- NOTE | 2016-10-12 06:44 | NUR ---
Protonix not available in the [facility], notified Sales Effectiveness Manager, not given, will endorsed to day shift RN.
[2016-10-12 08:00] VITALS: BP 99/47
[2016-10-12] MEDS: PANTOPRAZOLE SODIUM 40 MG TABLET.DR PO SCH ×2 (08:11→17:28)
--- NOTE | 2016-10-12 08:16 | NUR ---
Received report from fast food shift supervisor. Patient awake sitting in chair. O2 at 2 LMP. With patent IV site over right wrist. Not in any from of distress. Awake, alert oriented x3. No complaints of pain at the moment. Call light within reach.
[2016-10-12] MEDS: LACTOBACILLUS RHAMNOSUS GG 1 EACH CAPSULE PO SCH ×2 (08:58→20:16)
[2016-10-12] MEDS: CYANOCOBALAMIN 1000 MCG/ML VIAL IM SCH (08:58)
[2016-10-12] MEDS: MULTIVITAMINS,THERAPEUTIC TABLET PO SCH (08:59)
[2016-10-12] MEDS: FERROUS SULFATE 325 MG TABEC PO SCH (08:59)
[2016-10-12] MEDS: ZINC SULFATE 220 MG CAPSULE PO SCH (08:59)
[2016-10-12] MEDS: ASCORBIC ACID 500 MG TABLET PO SCH (08:59)
[2016-10-12] MEDS: predniSONE 20 MG TABLET PO SCH ×2 (08:59→17:28)
[2016-10-12] MEDS: SILVER SULFADIAZINE 1% CREAM 50 GM TP SCH (09:00)
[2016-10-12] MEDS: AMMONIUM LACTATE 12% LOTION 225 GM BOTTLE TP SCH ×2 (09:01→17:28)
[2016-10-12] MEDS: Z GUARD REMEDY PASTE 57 GM TUBE TOP PRN (09:02)
--- NOTE | 2016-10-12 14:00 | NUR ---
Dressing changed done over wound with Betadine, Silveden cream, gauze and kerlix and Lane bandage as ordered
--- NOTE | 2016-10-12 17:00 | NUR ---
Patient requested for sleeping pill. Informed dr. Pool. Timazepam Hs as ordered. VTE chemical prophylaxis contraindicated for patient as per Dr. Pool because of hx of GI bleeding
--- NOTE | 2016-10-12 20:00 | NUR ---
PATIENT AWAKE, SITTING IN CHAIR AT BEDSIDE. PATIENT IS A/O X3. FARSI SPEAKING, BUT ABLE TO MAKE NEEDS KNOWN. DENIES PAIN OR DISCOMFORT. NO RESP. DISTRESS NOTED. PATIENT TENDS TO BECOMES SOB ON EXERTION AT TIMES. H/L INTACT AND PATENT, NOTED TO LEFT AC #22 GAUGE. CALL LIGHT IN REACH. ALL NEEDS ATTENDED. WILL CONTINUE TO MONITOR AND ASSESS. Addendum: 10/12/16 at 2146 by HERNANDO MAC LVN PLEASE DISREGARD NOTE. INCORRECT PATIENT.
--- NOTE | 2016-10-12 20:00 | NUR ---
RECEIVED PATIENT AWAKE, SITTING IN CHAIR AT BEDSIDE. A/O X4. DENIES PAIN OR DISCOMFORT. NO RESP. DISTRESS NOTED. VSS. ON ISOLATION FOR MRSA IN THE BLOOD. NEW ORDERS RECEIVED FROM DR. ORTIZ. NOTED AND CARRIED OUT. MD WANTS PATIENT TO WEAR DVT PUMPS AT NIGHT. PATIENT HAS BILATERAL DRESSINGS NOTED TO LOWER EXTREMITIES, MD AWARE AND OK FOR PATIENT TO WEAR PER MD. DRESSINGS NOTED TO BE CLEAN, DRY AND INTACT. H/L INTACT AND PATENT, NOTED TO RIGHT HAND #20 GAUGE. BED ALARM ON. CALL LIGHT IN REACH. ALL NEEDS ATTENDED. WILL CONTINUE TO MONITOR AND ASSESS.
[2016-10-12 20:14] VITALS: BP 118/48
--- NOTE | 2016-10-13 | NUR ---
PATIENT AWAKE SITTING IN CHAIR. REFUSED DVT PUMPS.
[2016-10-13] MEDS: TEMAZEPAM 7.5 MG CAPSULE PO PRN ×2 (00:10→23:08)
[2016-10-13] MEDS: PANTOPRAZOLE SODIUM 40 MG TABLET.DR PO SCH ×2 (06:08→16:39)
--- NOTE | 2016-10-13 06:47 | NUR ---
PATIENT AWAKE IN ROOM. SLEPT WELL THROUGHOUT THE NIGHT. DENIES PAIN. CALL LIGHT IN REACH. ALL NEEDS ATTENDED. WILL CONTINUE TO MONITOR.
[2016-10-13 08:00] VITALS: BP 131/60
--- NOTE | 2016-10-13 08:00 | NUR ---
electronic organ technician at bedside for ordered blood cultures. Patient refusing cultures at this time Md notified.
[2016-10-13 08:20] LABS: CARBON DIOXIDE 33 mmol/L (21-32); CHLORIDE 101 mmol/L (98-107); CREATININE 1.3 mg/dL (0.6-1.3); GLUCOSE 119 mg/dL (74-106); MAGNESIUM 2.2 mg/dL (1.8-2.4); POTASSIUM 4.2 mmol/L (3.5-5.1); UREA NITROGEN, BLOOD 26 mg/dL (7-18)
[2016-10-13 08:29] LABS: BASOPHILS % (AUTO) 0.1 % (0.0-2.0); EOSINOPHILS # (AUTO) 0.1 K/uL (0.0-0.7); EOSINOPHILS % (AUTO) 0.7 % (0.0-7.0); HEMATOCRIT 33.1 % (40-50); HEMOGLOBIN 10.3 G/DL (14.0-18.0); LYMPHOCYTES # (AUTO) 0.8 K/UL (0.8-4.8); LYMPHOCYTES % (AUTO) 11.1 % (20.5-51.5); MEAN CORPUSCULAR HEMOGLOBIN 25.6 UUG (27.0-31.0); MEAN CORPUSCULAR HGB CONC 31 g/dL (32.0-37.0); MEAN CORPUSCULAR VOLUME 82.1 FL (82.0-92.0); MONOCYTES # (AUTO) 0.5 K/UL (0.1-1.30); MONOCYTES % (AUTO) 6.1 % (0.0-11.0); NEUTROPHILS # (AUTO) 6.1 K/UL (1.8-8.9); PLATELET COUNT (AUTO) 79 K/UL (150-450); RED BLOOD CELL COUNT(AUTO) 4.03 MIL/UL (4.7-6.1); WHITE BLOOD COUNT (AUTO) 7.5 K/UL (4.0-11.2)
[2016-10-13] MEDS: ZINC SULFATE 220 MG CAPSULE PO SCH (09:25)
[2016-10-13] MEDS: FERROUS SULFATE 325 MG TABEC PO SCH (09:25)
[2016-10-13] MEDS: FUROSEMIDE 20 MG TABLET PO SCH (09:25)
[2016-10-13] MEDS: CYANOCOBALAMIN 1000 MCG/ML VIAL IM SCH (09:25)
[2016-10-13] MEDS: MULTIVITAMINS,THERAPEUTIC TABLET PO SCH (09:26)
[2016-10-13] MEDS: predniSONE 20 MG TABLET PO SCH ×2 (09:26→16:39)
[2016-10-13] MEDS: ASCORBIC ACID 500 MG TABLET PO SCH (09:26)
[2016-10-13] MEDS: LACTOBACILLUS RHAMNOSUS GG 1 EACH CAPSULE PO SCH ×2 (09:26→21:34)
[2016-10-13] MEDS: SILVER SULFADIAZINE 1% CREAM 50 GM TP SCH (09:27)
[2016-10-13] MEDS: AMMONIUM LACTATE 12% LOTION 225 GM BOTTLE TP SCH ×2 (09:27→16:44)
--- NOTE | 2016-10-13 15:16 | NUR ---
Dr. Pool in to examine patient, and informed of low platelets.
--- NOTE | 2016-10-13 15:41 | NUR ---
Clinical Pharmacy Note: Vancomycin Dosing per Pharmacy Subjective: Vancomycin IV to continue on this 81 yo male patient for cellulitis. Objective: BUN 26/Scr 1.3 WBC 7.5 Temperature 97.9 Vanco random level :11.6 today @0800 ht 5' 10'' wt 84 kg Blood culture:MRSA positive Assessment/Plan: Due to elevated srcr & advanced age, will continue to dose by fall off level. Gave one dose of 1250mg today at 1600. Will check renal function in am and decide when to order next random level. Will follow daily.
[2016-10-13] MEDS ORDERED: VANCOMYCIN IV 1,250 MG in IV DEXTROSE 5% 500 ML IV ONE (16:00)
--- NOTE | 2016-10-13 19:30 | NUR ---
Received patient resting in bed, no s/s of distress. No complaints of pain at this time. Call light within reach. Will continue to monitor.
[2016-10-14] MEDS: PANTOPRAZOLE SODIUM 40 MG TABLET.DR PO SCH ×2 (06:13→16:57)
--- NOTE | 2016-10-14 06:30 | NUR ---
Patient resting on his bedside chair, no complaints of pain at this time. No acute distress noted. Foot stool kept close by for comfort and as requested by patient himself. Needs attended. Due meds given. Kept in a comfortable position. Requested temperature maintained in his room. Asked for snacks frequently throughout shift. Frequent checks done. Endorsed accordingly.
[2016-10-14 08:00] VITALS: BP 128/60
[2016-10-14] MEDS: ZINC SULFATE 220 MG CAPSULE PO SCH (08:11)
[2016-10-14] MEDS: FERROUS SULFATE 325 MG TABEC PO SCH (08:11)
[2016-10-14] MEDS: AMMONIUM LACTATE 12% LOTION 225 GM BOTTLE TP SCH ×2 (08:11→16:57)
[2016-10-14] MEDS: MULTIVITAMINS,THERAPEUTIC TABLET PO SCH (08:11)
[2016-10-14] MEDS: LACTOBACILLUS RHAMNOSUS GG 1 EACH CAPSULE PO SCH ×2 (08:11→20:49)
[2016-10-14] MEDS: ASCORBIC ACID 500 MG TABLET PO SCH (08:11)
[2016-10-14] MEDS: predniSONE 20 MG TABLET PO SCH (08:11)
[2016-10-14] MEDS: SILVER SULFADIAZINE 1% CREAM 50 GM TP SCH (08:13)
[2016-10-14 14:07] LABS: VIT D, 25-HYDROXY 44.3 ng/mL (30.0-100.0)
--- NOTE | 2016-10-14 14:39 | NUR ---
Access Control Specialist: SW met with pt at bedside to assess needs and provide support. Pt is a 81-year-old male admitted to ARU for functional decline and impaired mobility. He has a hx of COPD and has progressively worsening of leg swelling and difficulty in ambulation as well. Pt reported his admission into ARU was mainly related to his leg swelling. Pt reported to have a strong family support and lives at home with his daughter and grandson. Per pt, he has no hx of mental illness and/or substance abuse. He stated his 10 years ago, and has been a ever since. Pt reported his social support includes his daughter, grandson, and brother who lives in [place]. Pt appeared very happy when discussing his family and home life. He appeared calm and cooperative during interview. Pt stated he was able to ambulate prior to hospitalization. He appeared motivated to complete rehab, and has complied with rehab goals. Pt stated his goal is to be discharged back home soon. SW engaged in active listening and provided supportive counseling to deal with pts depressive symptoms related to his decline in ambulation. SW will continue to address issues of loss related to decline in ambulation/functioning.
--- NOTE | 2016-10-14 16:07 | NUR ---
Clinical Pharmacy Note: Vancomycin Dosing per Pharmacy Subjective: Vancomycin IV to continue on this 81 yo male patient for cellulitis. Objective: BUN 26(10/13)/Scr 1.3(10/13) WBC 7.5 (10/13) Temperature 98 ht 5' 10'' wt 84 kg Blood culture:MRSA positive Assessment/Plan: Due to elevated srcr & advanced age, will continue to dose by fall off level. Gave one dose of 1250mg yesterday at 1600. Will order Vancomycin random in am for further dosing. Will follow daily.
--- NOTE | 2016-10-14 18:55 | NUR ---
pt was still beligerent through shift. pt took meds as prescribed. pt was helped to the toiled to voin and bm. pt had wound treatment provided on the legs. pt had no signs of acute distresss. pt still complains of the service and had said very lewd comments. pt has new orders. will continue to endorse plan of care for pt.
--- NOTE | 2016-10-14 19:30 | NUR ---
Patient resting on his bedside chair. No s/s of distress. Respirations even and unlabored. Reminded to call for help whenever necessary. Call light within reach. Will continue to monitor.
[2016-10-14 22:08] VITALS: BP 113/47
[2016-10-14] MEDS: TEMAZEPAM 7.5 MG CAPSULE PO PRN (23:04)
[2016-10-15] MEDS: PANTOPRAZOLE SODIUM 40 MG TABLET.DR PO SCH ×2 (06:32→17:15)
--- NOTE | 2016-10-15 06:53 | NUR ---
Patient awake on bedside chair, having snacks. No s/s of distress. No complaints of pain at this time. Slept well through the night. Due meds given. Needs attended. Safety precautions in place. Frequent checks done. Endorsed accordingly.
--- NOTE | 2016-10-15 08:00 | NUR ---
RECEIVED PATIENT AWAKE IN CHAIR. ALERT AND ORIENTED X3. NO S/S OF DISTRESS. NO COMPLAINTS OF PAIN AT THE MOMENT. CALL LIGHT WITHIN REACH. MAINTAINED AND OBSERVED CONTACT PRECAUTIONS
[2016-10-15 08:17] VITALS: BP 117/48
[2016-10-15] MEDS: MULTIVITAMINS,THERAPEUTIC TABLET PO SCH (09:20)
[2016-10-15] MEDS: LACTOBACILLUS RHAMNOSUS GG 1 EACH CAPSULE PO SCH ×2 (09:20→20:36)
[2016-10-15] MEDS: FUROSEMIDE 20 MG TABLET PO SCH (09:20)
[2016-10-15] MEDS: ZINC SULFATE 220 MG CAPSULE PO SCH (09:20)
[2016-10-15] MEDS: FERROUS SULFATE 325 MG TABEC PO SCH (09:20)
[2016-10-15] MEDS: predniSONE 20 MG TABLET PO SCH (09:21)
[2016-10-15] MEDS: ASCORBIC ACID 500 MG TABLET PO SCH (09:21)
[2016-10-15] MEDS: Z GUARD REMEDY PASTE 57 GM TUBE TOP PRN (09:26)
[2016-10-15] MEDS: AMMONIUM LACTATE 12% LOTION 225 GM BOTTLE TP SCH ×2 (09:34→17:16)
[2016-10-15] MEDS: SILVER SULFADIAZINE 1% CREAM 50 GM TP SCH (09:35)
[2016-10-15] MEDS ORDERED: VANCOMYCIN IV 1,250 MG in IV DEXTROSE 5% 500 ML IV ONE (13:00)
--- NOTE | 2016-10-15 14:23 | NUR ---
Rehab Team Conference Meeting 10/15/16
--- NOTE | 2016-10-15 14:45 | NUR ---
IV infiltrated during vancomycin administration. IV re started over left upper arm. IV patent, Vancomycin infusing well over left upper arm.
--- NOTE | 2016-10-15 15:44 | NUR ---
Clinical Pharmacy Note: Vancomycin Dosing per Pharmacy Subjective: Vancomycin IV to continue on this 81 yo male patient for cellulitis. Objective: BUN 26(10/13)/Scr 1.3(10/13) WBC 7.5 (10/13) Temperature 97.6 ht 5' 10'' wt 84 kg Blood culture:MRSA positive Vancomycin random 9.8 today at 0600 Assessment/Plan: Due to elevated srcr & advanced age, will continue to dose by fall off level. Vancomycin 1250mg IV x1 given today at 1300. Will order Vancomycin random in am with am labs. Will follow daily.
--- NOTE | 2016-10-15 20:00 | NUR ---
RECEIVED PATIENT AWAKE, SITTING IN CHAIR AT BEDSIDE. A/O X4. DENIES PAIN OR DISCOMFORT AT THIS TIME. NO RESP. DISTRESS NOTED. HEPLOCK NOTED TO LEFT UPPER ARM #22 GAUGE. VSS. DRESSINGS NOTED TO LOWER EXTREMITIES, CLEAN, DRY AND INTACT. ON ISOLATION FOR MRSA IN THE BLOOD. CALL LIGHT IN REACH. ALL NEEDS ATTENDED. WILL CONTINUE TO MONITOR.
[2016-10-15 20:03] VITALS: BP 118/60
--- NOTE | 2016-10-15 22:00 | NUR ---
PATIENT SITTING IN CHAIR. REFUSED FOR PICTURES TO BE TAKEN AT THIS TIME. DRESSINGS WERE CHANGED EARLIER VIA DAYSHIFT NURSE. WILL CONTINUE TO MONITOR.
[2016-10-15] MEDS: TEMAZEPAM 7.5 MG CAPSULE PO PRN (22:24)
[2016-10-16] MEDS: PANTOPRAZOLE SODIUM 40 MG TABLET.DR PO SCH ×2 (06:20→17:21)
--- NOTE | 2016-10-16 07:01 | NUR ---
PATIENT AWAKE IN CHAIR. DENIES PAIN OR DISCOMFORT. NO RESP. DISTRESS NOTED. SLEPT AT INTERVALS. CALL LIGHT IN REACH. ALL NEEDS ATTENDED. WILL CONTINUE TO MONITOR.
[2016-10-16 08:00] VITALS: BP 115/54
--- NOTE | 2016-10-16 09:00 | NUR ---
PATIENT AWAKE IN CHAIR. NO S/S OF DISTRESS. NO COMPLAINTS OF PAIN. AFEBRILE. NO SOB,O2 SATS AT 93% AT ROOM AIR. PATIENT REFUSED ABGS AND BLOOD TESTS FOR RANDOM VANCOMYCIN LEVELS. VERBALIZES OF WANTING TO GO HOME.
[2016-10-16] MEDS: FERROUS SULFATE 325 MG TABEC PO SCH (09:34)
[2016-10-16] MEDS: ZINC SULFATE 220 MG CAPSULE PO SCH (09:34)
[2016-10-16] MEDS: LACTOBACILLUS RHAMNOSUS GG 1 EACH CAPSULE PO SCH ×2 (09:34→20:29)
[2016-10-16] MEDS: ASCORBIC ACID 500 MG TABLET PO SCH (09:34)
[2016-10-16] MEDS: SILVER SULFADIAZINE 1% CREAM 50 GM TP SCH (09:34)
[2016-10-16] MEDS: AMMONIUM LACTATE 12% LOTION 225 GM BOTTLE TP SCH ×2 (09:34→17:24)
[2016-10-16] MEDS: predniSONE 20 MG TABLET PO SCH (09:35)
[2016-10-16] MEDS: MULTIVITAMINS,THERAPEUTIC TABLET PO SCH (09:35)
--- NOTE | 2016-10-16 10:00 | NUR ---
PATIENT REFUSED BACTROBAN OINT FOR NARES, PATIENT PREFER TO SLEEP ON THE CHAIR, REFUSED TO ELEVATE BOTH FEET WITH PILLOWS, PATIENT WANTED HEP LOCK TO BE REMOVED, BUT EXPLAINED TO PATIENT THAT HEP LOCK STILL NEEDED FOR HIS IV MEDICATIONS, CONTINUE TO ORIENTED AND OFFER MEDICATIONS, AND LAB WORKS. MD AWARE OF THE BEHAVIOR.
--- NOTE | 2016-10-16 11:00 | NUR ---
INFORMED DAUGHTER OF PATIENT WANTING TO GO HOME. INFORMED PATIENT OF POSSIBLE COMPLICATIONS FOR AMA AND NEED FOR ANTI BIOTIC THERAPY. PATIENT UPSET BUT WAS ABLE TO PARTICIPATE WITH PHYSICAL THERAPY.
--- NOTE | 2016-10-16 12:35 | NUR ---
Tried to encouraged patient for blood to be drawn for ABGs and Vancomycin Levels, but refused.
--- NOTE | 2016-10-16 14:00 | NUR ---
Attempted to provide encouragement per/with RN request for blood draw however pt refusing. Pt stating , "get out of here, I want to stay here longer now, I like it here, i get food and everything, I want to stay now but I don't want to get poked anymore."
--- NOTE | 2016-10-16 16:48 | NUR ---
Encouraged patient to allow for blood to be drawn for Vancomycin Levels and ABGs once again, but patient refused said " I don't need it, you've stick me too much, get out." Tried to get hold and paged infectious disease MD for orders.
--- NOTE | 2016-10-16 18:27 | NUR ---
Informed Dr. Chavez of patient refusing blood drawn for Vancomycin levels. said to try to draw again blood for tomorrow. Re-ordered blood to be drawn tomorrow.
--- NOTE | 2016-10-16 19:00 | NUR ---
PATIENT IN HIS ROOM WATCHING TV, DENIES PAIN NOR DISCOMFORT AT THIS TIME, CONT TO MONITOR.
[2016-10-16 20:00] VITALS: BP 119/58
[2016-10-16] MEDS: MUPIROCIN 2% OINT 22 GM TUBE NS SCH (20:34)
[2016-10-16] MEDS ORDERED: MUPIROCIN 2% CREAM 15 GM TUBE TOP SCH (21:00)
[2016-10-16] MEDS: TEMAZEPAM 7.5 MG CAPSULE PO PRN (21:56)
[2016-10-16] MEDS: HYDROCODONE/APAP 5-325MG TABLET PO PRN (22:41)
--- NOTE | 2016-10-17 05:02 | NUR ---
PATIENT SLEPT IN THE CHAIR, SLEPT MOST OF THE NIGHT, NO SOB NO CHEST PAIN NOTED, NO S/S OF DISTRESS.
[2016-10-17] MEDS: PANTOPRAZOLE SODIUM 40 MG TABLET.DR PO SCH ×2 (06:25→16:55)
[2016-10-17 08:25] VITALS: BP 109/65
[2016-10-17] MEDS: SILVER SULFADIAZINE 1% CREAM 50 GM TP SCH ×2 (09:00→09:10)
[2016-10-17] MEDS: AMMONIUM LACTATE 12% LOTION 225 GM BOTTLE TP SCH ×4 (09:00→17:00)
[2016-10-17] MEDS: predniSONE 10 MG TABLET PO SCH (09:07)
[2016-10-17] MEDS: LACTOBACILLUS RHAMNOSUS GG 1 EACH CAPSULE PO SCH ×2 (09:07→20:57)
[2016-10-17] MEDS: ASCORBIC ACID 500 MG TABLET PO SCH (09:07)
[2016-10-17] MEDS: MULTIVITAMINS,THERAPEUTIC TABLET PO SCH (09:07)
[2016-10-17] MEDS: FERROUS SULFATE 325 MG TABEC PO SCH (09:07)
[2016-10-17] MEDS: FUROSEMIDE 20 MG TABLET PO SCH (09:07)
[2016-10-17] MEDS: ZINC SULFATE 220 MG CAPSULE PO SCH (09:07)
[2016-10-17] MEDS: MUPIROCIN 2% OINT 22 GM TUBE NS SCH ×2 (09:09→20:58)
--- NOTE | 2016-10-17 11:18 | NUR ---
Clinical Pharmacy Note: Vancomycin Dosing per Pharmacy Subjective: Vancomycin IV to continue on this 81 yo male patient for cellulitis. Objective: BUN 26(10/13)/Scr 1.3(10/13) WBC 7.5 (10/13) Temperature 97.6(10/17) ht 5' 10'' Patient refused blood draw yesterday. Did get vancomycin level today 10/17 = 7.7 Continue vancomycin 1250mg ivpb q30h estimated trough calculated based on current level 15. Will continue vancomycin through 10/20/16 to complete 14 day course per ID
[2016-10-17] MEDS: VANCOMYCIN IV 1,250 MG in IV DEXTROSE 5% 500 ML IV SCH (12:09)
[2016-10-17] MEDS: HYDROCODONE/APAP 5-325MG TABLET PO PRN ×2 (15:05→20:57)
--- NOTE | 2016-10-17 15:17 | NUR ---
patient iv infiltrated. patient was receiving vancomycin. Stated his arm started to hurt when infusion was done. Called Pharmacy to see if there is a protocol for iv infiltration. Stated to use warm compress. Notified DIRECTOR ECONOMIC Daniel about infiltrate. IV was removed, warm compress applied and pain medication given.
[2016-10-17 20:43] VITALS: BP 119/63
[2016-10-17] MEDS: TEMAZEPAM 7.5 MG CAPSULE PO PRN (22:36)
[2016-10-18] MEDS: PANTOPRAZOLE SODIUM 40 MG TABLET.DR PO SCH ×2 (06:34→16:06)
--- NOTE | 2016-10-18 06:47 | NUR ---
PT SITTING MOST OF THE TIME, EATS AND DRINKS TEA A LOT, MEDICATED WITH NORCO X1 , SLEEPS IN THE CHAIR, REFUSED WOUND TREATMENT THIS MORNING AND PREFERS TO SLEEP MORE,VSS,AGEBRILE LEFT ARM STILL SWOLLEN AND RED KEPT ELEVATED WITH PILLOW. WILL CONTINUE TO MONITOR ALL NEEDS ATTENDED.
--- NOTE | 2016-10-18 07:15 | NUR ---
REC'D SBAR REPORT FROM AM SHIFT. PT RESTING, NO DISTRESS NOTED.
[2016-10-18] MEDS: ASCORBIC ACID 500 MG TABLET PO SCH (08:36)
[2016-10-18] MEDS: LACTOBACILLUS RHAMNOSUS GG 1 EACH CAPSULE PO SCH ×2 (08:37→20:18)
[2016-10-18] MEDS: AMMONIUM LACTATE 12% LOTION 225 GM BOTTLE TP SCH ×2 (08:37→16:06)
[2016-10-18] MEDS: MULTIVITAMINS,THERAPEUTIC TABLET PO SCH (08:37)
[2016-10-18] MEDS: predniSONE 10 MG TABLET PO SCH (08:37)
[2016-10-18] MEDS: ZINC SULFATE 220 MG CAPSULE PO SCH (08:37)
[2016-10-18] MEDS: FERROUS SULFATE 325 MG TABEC PO SCH (08:37)
[2016-10-18] MEDS: SILVER SULFADIAZINE 1% CREAM 50 GM TP SCH (08:37)
[2016-10-18] MEDS: MUPIROCIN 2% OINT 22 GM TUBE NS SCH ×2 (08:38→20:18)
[2016-10-18 12:05] VITALS: BP 112/68
--- NOTE | 2016-10-18 14:51 | NUR ---
Clinical Pharmacy Note: Vancomycin Dosing per Pharmacy Subjective: Vancomycin IV to continue on this 81 yo male patient for cellulitis. Objective: BUN 26(10/13)/Scr 1.3(10/13) WBC 7.5 (10/13) Temperature 97.6(10/17) ht 5' 10'' vancomycin level random yesterday 10/17 = 7.7 Continue vancomycin 1250mg ivpb q30h estimated trough calculated based on current level 15. Will continue vancomycin through 10/20/16 to complete 14 day course per ID
--- NOTE | 2016-10-18 16:26 | NUR ---
20 G saline lock palced to rt ac.
[2016-10-18] MEDS: VANCOMYCIN IV 1,250 MG in IV DEXTROSE 5% 500 ML IV SCH (17:56)
[2016-10-18 18:43] VITALS: BP 115/65
--- NOTE | 2016-10-18 19:09 | NUR ---
bedside sbar report to brenda mcelroy. pt watching tv, vanco ivpb drip infusing via iv pump.
[2016-10-18 20:05] VITALS: BP 132/66
[2016-10-18] MEDS: HYDROCODONE/APAP 5-325MG TABLET PO PRN (20:18)
[2016-10-18] MEDS: TEMAZEPAM 7.5 MG CAPSULE PO PRN (22:31)
--- NOTE | 2016-10-19 06:00 | NUR ---
pt had vanco infusing but pt got upset that the infusion didnt finished at the time he was told, pt iv site is at the antecubital and positional when he bends his arm infusion stop.pt gets upset and yelled to have it discontinue or stop,. continue to have pain in the left arm norco given last night with good relief, slept well overnight,vss,afebrile,all needs attended.
[2016-10-19] MEDS: PANTOPRAZOLE SODIUM 40 MG TABLET.DR PO SCH ×2 (06:01→17:28)
[2016-10-19 08:00] VITALS: BP 114/47
[2016-10-19] MEDS: FUROSEMIDE 20 MG TABLET PO SCH (09:27)
[2016-10-19] MEDS: FERROUS SULFATE 325 MG TABEC PO SCH (09:27)
[2016-10-19] MEDS: ZINC SULFATE 220 MG CAPSULE PO SCH (09:27)
[2016-10-19] MEDS: LACTOBACILLUS RHAMNOSUS GG 1 EACH CAPSULE PO SCH ×2 (09:27→20:15)
[2016-10-19] MEDS: MULTIVITAMINS,THERAPEUTIC TABLET PO SCH (09:27)
[2016-10-19] MEDS: predniSONE 10 MG TABLET PO SCH (09:27)
[2016-10-19] MEDS: ASCORBIC ACID 500 MG TABLET PO SCH (09:27)
[2016-10-19] MEDS: AMMONIUM LACTATE 12% LOTION 225 GM BOTTLE TP SCH ×2 (09:29→17:28)
[2016-10-19] MEDS: MUPIROCIN 2% OINT 22 GM TUBE NS SCH ×2 (09:30→20:16)
[2016-10-19] MEDS: SILVER SULFADIAZINE 1% CREAM 50 GM TP SCH (09:30)
--- NOTE | 2016-10-19 15:04 | NUR ---
Clinical Pharmacy Note: Vancomycin Dosing per Pharmacy Subjective: Vancomycin IV to continue on this 81 yo male patient for cellulitis. Objective: BUN 26(10/13)/Scr 1.3(10/13) WBC 7.5 (10/13) Temperature 97.6(10/17) ht 5' 10'' vancomycin level random 10/17 = 7.7 Continue vancomycin 1250mg ivpb q30h estimated trough calculated based on current level 15. Will continue vancomycin through 10/20/16 to complete 14 day course per ID MD. End time will reach order before next scheduled trough is due. thus will continue same regimen until end of course.
--- NOTE | 2016-10-19 18:06 | NUR ---
Patient had a good day today. Took medications and worked with PT today. Daughter called to leave patient a message because patient keeps hanging phone up on daughter because he states she left him here in the hospital. NO PRN's given today
[2016-10-19] MEDS: HYDROCODONE/APAP 5-325MG TABLET PO PRN (20:16)
[2016-10-19 20:17] VITALS: BP 122/79
[2016-10-19] MEDS: TEMAZEPAM 7.5 MG CAPSULE PO PRN (22:08)
[2016-10-19] MEDS: VANCOMYCIN IV 1,250 MG in IV DEXTROSE 5% 500 ML IV SCH (23:53)
--- NOTE | 2016-10-20 00:45 | NUR ---
check iv vanco infusion, noted at site gets swollen, line infiltrated, right arm iv removed, applied ice packs and given norco for pain. restarted new iv site 22g to right hand and continue vanco infusion.will continue to monitor.
[2016-10-20] MEDS: HYDROCODONE/APAP 5-325MG TABLET PO PRN (01:14)
--- NOTE | 2016-10-20 02:27 | NUR ---
completed vano infusion without any signs of infiltration, heplock iv. continue warm packs to iv site infiltration.
[2016-10-20] MEDS: PANTOPRAZOLE SODIUM 40 MG TABLET.DR PO SCH (06:23)
--- NOTE | 2016-10-20 06:40 | NUR ---
pt slept in the chair all night, pain to the arm subsided. will continue to monitor, all needs attended, call light at reached. no significant changes.
--- NOTE | 2016-10-20 07:17 | NUR ---
rec'd bedside sbar report. pt awake, denies any distress, watching the tv.
[2016-10-20 07:30] VITALS: BP 116/58
[2016-10-20 08:36] LABS: CARBON DIOXIDE 32 mmol/L (21-32); CHLORIDE 100 mmol/L (98-107); CREATININE 1.2 mg/dL (0.6-1.3); GLUCOSE 95 mg/dL (74-106); POTASSIUM 3.8 mmol/L (3.5-5.1); UREA NITROGEN, BLOOD 21 mg/dL (7-18)
[2016-10-20 08:47] LABS: BASOPHILS % (AUTO) 0.3 % (0.0-2.0); EOSINOPHILS # (AUTO) 0.1 K/uL (0.0-0.7); EOSINOPHILS % (AUTO) 1.7 % (0.0-7.0); HEMATOCRIT 35.1 % (40-50); HEMOGLOBIN 11.1 G/DL (14.0-18.0); LYMPHOCYTES # (AUTO) 1.3 K/UL (0.8-4.8); LYMPHOCYTES % (AUTO) 14.6 % (20.5-51.5); MEAN CORPUSCULAR HEMOGLOBIN 26.1 UUG (27.0-31.0); MEAN CORPUSCULAR HGB CONC 32 g/dL (32.0-37.0); MEAN CORPUSCULAR VOLUME 83.1 FL (82.0-92.0); MONOCYTES # (AUTO) 0.6 K/UL (0.1-1.30); MONOCYTES % (AUTO) 7.2 % (0.0-11.0); NEUTROPHILS # (AUTO) 6.6 K/UL (1.8-8.9); NEUTROPHILS % (AUTO) 76.2 % (38.5-71.5); RED BLOOD CELL COUNT(AUTO) 4.23 MIL/UL (4.7-6.1); WHITE BLOOD COUNT (AUTO) 8.6 K/UL (4.0-11.2)
[2016-10-20 08:54] LABS: PLATELET COUNT (AUTO) 130 K/UL (150-450)
[2016-10-20] MEDS: SILVER SULFADIAZINE 1% CREAM 50 GM TP SCH (09:01)
[2016-10-20] MEDS: MULTIVITAMINS,THERAPEUTIC TABLET PO SCH (09:02)
[2016-10-20] MEDS: MUPIROCIN 2% OINT 22 GM TUBE NS SCH (09:02)
[2016-10-20] MEDS: FERROUS SULFATE 325 MG TABEC PO SCH (09:02)
[2016-10-20] MEDS: ASCORBIC ACID 500 MG TABLET PO SCH (09:02)
[2016-10-20] MEDS: LACTOBACILLUS RHAMNOSUS GG 1 EACH CAPSULE PO SCH (09:02)
[2016-10-20] MEDS: ZINC SULFATE 220 MG CAPSULE PO SCH (09:03)
[2016-10-20] MEDS: AMMONIUM LACTATE 12% LOTION 225 GM BOTTLE TP SCH (09:03)
--- NOTE | 2016-10-20 13:45 | NUR ---
WOUND DRESSING CHANGES: AT 0930 OFFERED/ATTEMPTED TO CHANGE THE PT'S DRESSING TO BOTH LOWER LEGS, THE PT REFUSED BOTH TIMES STATED" NOT NOW! GET OUT OF THE ROOM!"
--- NOTE | 2016-10-20 15:00 | NUR ---
PT'S PHONE DIALING AUTOMATICALLY TO [facility]. [place] THE RELIEF CHARGE NURSE AWARE, AND TO REPORTED TO ENGINEERING.
--- NOTE | 2016-10-20 15:26 | NUR ---
Clinical Pharmacy Note: Vancomycin Dosing per Pharmacy Subjective: Vancomycin IV to continue on this 81 yo male patient for cellulitis. Objective: BUN 21 Scr 1.2 WBC 7.5 Temperature 97.4 ht 5' 10'' vancomycin level random 10/17 = 7.7 Continue vancomycin 1250mg ivpb q30h estimated trough calculated based on current level 15. Will continue vancomycin through 10/20/16 to complete 14 day course per ID MD. End time will reach order before next scheduled trough is due, last dose will be midnight tonight. thus will continue same regimen until end of course.
--- NOTE | 2016-10-20 15:30 | NUR ---
PTY D/C'D HOME,PER DR MOBLEY, COVERING FOR DR HELLER, RX'S PER DOROTHY ENGEL NP. PT HAD IV D/C'D INTACT, PT'S GRANDSON PRESENT, WHOM TRANSPORTED PT VIA WHEELCHAIR TO [employer]IVATE [employer]. PT TOOK ALL BELONGINGS. D/C INSTRUTIONS ALSO GIVEN. PT VERBALIZED UNDERSTANDING. Addendum: 10/20/16 at 1825 by SIMIN GARZA RN CORRECTION, NO RX NEEDED OR GIVEN.
== END 2016-10-20 13:50 | disposition home health service (06) | DRG 166 ==
PROVIDERS: ADMIT Physical Medicine & Rehabilitation Pain Medicine; ATTEND Physical Medicine & Rehabilitation Pain Medicine
PROC: 0HBNXZZ Excision of Left Foot Skin, External Approach (ICD-10-PCS; principal; 2016-10-12)
PROC: 0HBRXZZ Excision of Toe Nail, External Approach (ICD-10-PCS; principal; 2016-10-12)
PROC: 0HBMXZZ Excision of Right Foot Skin, External Approach (ICD-10-PCS; principal; 2016-10-12)
DX: J44.1 Chronic obstructive pulmonary disease with (acute) exacerbation (principal); E43 Unspecified severe protein-calorie malnutrition; L03.115 Cellulitis of right lower limb; E87.1 Hypo-osmolality and hyponatremia; L03.116 Cellulitis of left lower limb; L97.309 Non-pressure chronic ulcer of unspecified ankle with unspecified severity; L97.919 Non-pressure chronic ulcer of unspecified part of right lower leg with unspecified severity; L97.929 Non-pressure chronic ulcer of unspecified part of left lower leg with unspecified severity; D68.59 Other primary thrombophilia; E87.2 Acidosis; N17.9 Acute kidney failure, unspecified; I50.32 Chronic diastolic (congestive) heart failure; E66.2 Morbid (severe) obesity with alveolar hypoventilation; F43.22 Adjustment disorder with anxiety; D50.9 Iron deficiency anemia, unspecified; N18.9 Chronic kidney disease, unspecified; N40.1 Benign prostatic hyperplasia with lower urinary tract symptoms; R33.8 Other retention of urine; R53.1 Weakness; R19.5 Other fecal abnormalities; I83.009 Varicose veins of unspecified lower extremity with ulcer of unspecified site; B35.1 Tinea unguium; E53.8 Deficiency of other specified B group vitamins; Z68.26 Body mass index [BMI] 26.0-26.9, adult; M77.9 Enthesopathy, unspecified; M65.9 Synovitis and tenosynovitis, unspecified; I89.0 Lymphedema, not elsewhere classified; Z77.090 Contact with and (suspected) exposure to asbestos; Z87.891 Personal history of nicotine dependence; R53.81 Other malaise; I70.0 Atherosclerosis of aorta; I87.2 Venous insufficiency (chronic) (peripheral); I87.8 Other specified disorders of veins; E66.9 Obesity, unspecified; M19.90 Unspecified osteoarthritis, unspecified site; R00.0 Tachycardia, unspecified; R26.2 Difficulty in walking, not elsewhere classified; R31.9 Hematuria, unspecified; R80.9 Proteinuria, unspecified; Z86.14 Personal history of Methicillin resistant Staphylococcus aureus infection; L84 Corns and callosities; G47.33 Obstructive sleep apnea (adult) (pediatric)
CPT/HCPCS: 36415; 82306; 82652; 83735; 83970; 84100; 85025; 87040; 92523; 97110; 97112; 97116; 97165; 97530; 97535; A4663; J3370; J3420; J7060; J7512